=== PATIENT | female | born 1975 | race Caucasian/White ===

== ENCOUNTER → 2016-09-25 | Day surgery (SDC) | payer OTHER ==
[~2016-09-25] MED LIST: ACETAMINOPHEN 1000 MG/100 ML VIAL IV ONE; ACETAMINOPHEN/HYDROcodone 325 MG/5 MG TAB ONE; ADVI200C9 PO; BUPIVACAINE/EPINEPHRINE 0.5% PF 10 ML VIAL ONE; GABA300 PO; KETOROLAC TROMETHAMINE 30 MG/ML (IVP) VIAL IV PUSH ONE; LACTATED RINGER'S 1000 ML INJ 1,000 ML ONE; LEVO.05 PO; MIDAZOLAM HCL 2 MG/2 ML VIAL ONE; MORPHINE SULFATE 4 MG/ML INJ ONE; ONDANSETRON HCL 4 MG/2 ML VIAL IV PUSH ONE; PROPOFOL 200 MG/20 ML AMP IV ONE; ceFAZolin 2 GM PREMIX 50 ML ONE; metroNIDAZOLE 500 MG INJ 100 ML IV ONE
--- NOTE | 2016-09-25 13:56 | TN ---
cc: MELANI FLORES DATE OF SURGERY: 09/25/2016 PREOPERATIVE DIAGNOSIS Biliary colic with biliary sludge. POSTOPERATIVE DIAGNOSIS Biliary colic with biliary sludge. PROCEDURE Laparoscopic cholecystectomy. ANESTHESIA General. SURGEON Dr. Flores. INDICATION This is a pleasant 40-year-old female who had signs and symptomatology consistent with biliary colic. Plans were made for above. PROCEDURE The patient was taken to the operating room and placed in the supine position. After anesthesia, time-out is done. She is given preoperative antibiotics. Her abdomen was prepped with Betadine. We make an incision below the umbilicus. Veress needle was inserted, saline load test was performed. The abdomen was insufflated to 15 mmHg. A 10 mm trocar was introduced. Two other working ports were placed 5 mm below the xiphoid, 5 mm in between the two previously placed ports. The gallbladder can be seen, it obviously been chronically inflamed with adhesions. These are taken down with blunt dissection and electrocautery. The duodenum appears to be stuck up there as well and this is carefully teased away. The gallbladder is then retracted superior and then laterally identifying the cystic duct, cystic artery both of which were doubly ligated and transected. The gallbladder is then teased off the gallbladder bed, placed in the EndoCatch, pulled out through the umbilical incision. We then check our dissection site, there was excellent hemostasis without biliary leakage. The liver is smooth. The peritoneal surfaces are smooth. The appendix appears normal. No other gross abnormalities seen. The CO2 was removed and the fascia is then closed with 0 Vicryl at the umbilicus and skin is closed with a 4-0 Vicryl. Steri-Strips were applied. Sterile bandage applied. The patient tolerated the procedure well and had no immediate postop complications. Melani Flores MD JDB/LESLIE /1:35 PM /1:46 PM
== END | disposition home or self-care (01) ==
LOC: ESDC 09:45
PROVIDERS: ATTEND Surgery
DX: K80.50 Calculus of bile duct without cholangitis or cholecystitis without obstruction (principal)
CPT/HCPCS: 00790; 47562; J0131; J0690; J1885; J2250; J2270; J2405; J3010; J7120; 88304

== ENCOUNTER → 2016-10-09 | Outpatient (CLI) | payer OTHER ==
[~2016-10-09] MED LIST changes: -ACETAMINOPHEN 1000 MG/100 ML VIAL IV ONE; -ACETAMINOPHEN/HYDROcodone 325 MG/5 MG TAB ONE; -BUPIVACAINE/EPINEPHRINE 0.5% PF 10 ML VIAL ONE; -KETOROLAC TROMETHAMINE 30 MG/ML (IVP) VIAL IV PUSH ONE; -LACTATED RINGER'S 1000 ML INJ 1,000 ML ONE; -MIDAZOLAM HCL 2 MG/2 ML VIAL ONE; -MORPHINE SULFATE 4 MG/ML INJ ONE; -ONDANSETRON HCL 4 MG/2 ML VIAL IV PUSH ONE; -PROPOFOL 200 MG/20 ML AMP IV ONE; -ceFAZolin 2 GM PREMIX 50 ML ONE; -metroNIDAZOLE 500 MG INJ 100 ML IV ONE
[2016-10-09 09:09] LABS: AUTOMATED NEUTROPHIL # 5.2 TH/MM3 (1.8-7.7); BASOPHIL # 0.1 TH/MM3 (0-0.2); BASOPHIL % 0.7 % (0.0-2.0); EOSINOPHIL # 0.1 TH/MM3 (0-0.4); HEMATOCRIT 38.3 % (35.0-46.0); HEMO FLAGS DIFF FINAL; LYMPH % 26.3 % (9.0-44.0); LYMPHOCYTE # 2.1 TH/MM3 (1.0-4.8); MEAN CELL VOLUME 91.3 FL (80.0-100.0); MEAN CORPUSCULAR HEMOGLOBIN 31.2 PG (27.0-34.0); MEAN CORPUSCULAR HGB CONC 34.2 % (32.0-36.0); MONO % 7.8 % (0.0-8.0); NEUT % 64.2 % (16.0-70.0); PLATELET COUNT 348 TH/MM3 (150-450); RED BLOOD COUNT 4.19 MIL/MM3 (4.00-5.30); WHITE BLOOD COUNT 8.1 TH/MM3 (4.0-11.0)
[2016-10-09 09:39] LABS: TOTAL BILIRUBIN ADULT 0.2 MG/DL (0.2-1.0)
[2016-10-09 09:40] LABS: INDIRECT BILIRUBIN 0.1 MG/DL (0.0-0.8)
== END ==
LOC: CLAB 08:49
PROVIDERS: ATTEND Surgery
DX: R10.11 Right upper quadrant pain (principal)
CPT/HCPCS: 36415; 80076; 82150; 83690; 85025

== ENCOUNTER → 2017-10-01 | Outpatient (CLI) | payer OTHER ==
[2017-10-01 10:40] LABS: AUTOMATED NEUTROPHIL # 3.6 TH/MM3 (1.8-7.7); BASOPHIL % 0.6 % (0.0-2.0); EOSINOPHIL # 0.2 TH/MM3 (0-0.4); EOSINOPHIL % 2.4 % (0.0-4.0); HEMATOCRIT 40.1 % (35.0-46.0); HEMOGLOBIN 13.7 GM/DL (11.6-15.3); LYMPH % 29.9 % (9.0-44.0); LYMPHOCYTE # 1.8 TH/MM3 (1.0-4.8); MEAN CELL VOLUME 91.8 FL (80.0-100.0); MEAN CORPUSCULAR HEMOGLOBIN 31.3 PG (27.0-34.0); MEAN CORPUSCULAR HGB CONC 34.1 % (32.0-36.0); MEAN PLATELET VOLUME 7.7 FL (7.0-11.0); MONO % 9.1 % (0.0-8.0); MONOCYTE # 0.6 TH/MM3 (0-0.9); PLATELET COUNT 332 TH/MM3 (150-450); RED BLOOD COUNT 4.36 MIL/MM3 (4.00-5.30); RED CELL DISTRIBUTION WIDTH 14.4 % (11.6-17.2); WHITE BLOOD COUNT 6.2 TH/MM3 (4.0-11.0)
[2017-10-01 11:04] LABS: ALBUMIN 4.1 GM/DL (3.4-5.0); AST (GOT) 17 U/L (15-37); BICARBONATE 24.6 MEQ/L (21.0-32.0); BLOOD UREA NITROGEN 10 MG/DL (7-18); CHLORIDE 106 MEQ/L (98-107); CREATININE 0.68 MG/DL (0.50-1.00); GLOMERULAR FILTRATION RATE 95 ML/MIN (>89); GLUCOSE,FASTING 92 MG/DL (74-99); SODIUM (NA) 139 MEQ/L (136-145)
[2017-10-01 11:05] LABS: CHOLESTEROL 172 MG/DL (120-200); TRIGLYCERIDES 66 MG/DL (42-150)
[2017-10-01 11:15] LABS: ALKALINE PHOSPHATASE 67 U/L (45-117); ALT (GPT) 30 U/L (10-53); CHOLESTEROL/ HDL RATIO 3.11 RATIO; HDL CHOLESTEROL 55.3 MG/DL (40.0-60.0); LDL CHOLESTEROL 104 MG/DL (0-99); THYROXINE (T4) 7.9 MCG/DL (4.8-13.9); TOTAL BILIRUBIN ADULT 0.3 MG/DL (0.2-1.0)
[2017-10-01 11:44] LABS: BACTERIA, URINE FEW /hpf; BILIRUBIN, URINE NEG (NEG); BLOOD, URINE MOD (NEG); GLUCOSE,URINE NEG (NEG); KETONE, URINE NEG (NEG); NITRITE,URINE NEG (NEG); SQUAMOUS EPITHELIAL CELL URINE 3 /hpf (0-5); URINE COLOR Straw (YELLW/STRAW); URINE LEUKOCYTE ESTERASE NEG (NEG)
== END ==
LOC: CLAB 10:12
PROVIDERS: ATTEND Family Medicine
DX: R53.83 Other fatigue (principal); R35.1 Nocturia; Z13.21 Encounter for screening for nutritional disorder; Z13.220 Encounter for screening for lipoid disorders; Z13.0 Encounter for screening for diseases of the blood and blood-forming organs and certain disorders involving the immune mechanism; Z13.29 Encounter for screening for other suspected endocrine disorder; Z13.89 Encounter for screening for other disorder
CPT/HCPCS: 36415; 80053; 80061; 81001; 84436; 84443; 85025; 86617